=== PATIENT | female | born 1960 | race Caucasian/White ===

== ENCOUNTER 2018-06-19 18:24 | Emergency (ER) | payer BC ==
--- NOTE | 2018-06-19 18:55 | EDM.PDOC ---
ED HPI GENERAL MEDICAL PROBLEM - General Chief Complaint: Upper Extremity Injury/Pain Stated Complaint: slit wrists Time Seen by Provider: 06/19/18 18:28 Source of Information: Reports: Patient, Family History Limitations: Reports: No Limitations - History of Present Illness INITIAL COMMENTS - FREE TEXT/NARRATIVE: Berkley is a 57 year old female who presents to the ED via private vehicle with her with reports of a suicide attempt. She reports she took 27 [place] tablets around noon and slit both her wrists at that time as well using a scalpel. She reports she has been struggling with depression for some time now and has been having suicidal thoughts the past few months. Has never acted on them until today. She reports that she has history of breast and ovarian cancer and has struggled with depression since then. reports he got home from work around 6:00 and found her with blood and slits to both her wrists. He reports he got home and was looking for her in the house, but was unable to find her. Then reports he got a text saying "I guess I need help." He reports he then [place]. He reports she has been alert and oriented the entire time. reports patient was also drinking wine when he found her as well. Patient is alert and oriented at time of presentation. She is maintaining her airway and talking in complete sentences. She is tearful. Does not offer much conversation regarding events of today. GCS 15. Onset: Today, Sudden Onset Date: 06/19/18 Onset Time: 12:00 Location: Reports: Upper Extremity, Left, Upper Extremity, Right Associated Symptoms: Reports: Nausea/Vomiting, Shortness of Breath. Denies: Confusion, Chest Pain, Cough, cough w sputum, Diaphoresis, Fever/Chills, Headaches, Loss of Appetite, Malaise, Rash, Seizure, Syncope, Weakness Treatments SCIENTIFIC EDITOR: Reports: Other (see below) (27 [place] (hydrocodone-acetaminophen 5-325 mg)) Chest Pain Score (Numeric/FACES): 3 - Related Data Allergies Allergy/AdvReac Type Severity Reaction Status Date / Time No Known Allergies Allergy Verified 06/19/18 18:37 Home Meds: Home Meds Anastrozole [Arimidex] 1 tab PO DAILY 06/19/18 [History] Hydrocodone/Acetaminophen [Hydrocodon-Acetaminophen 5-325] 1 - 2 tab PO Q4HR PRN 06/19/18 [History] Review of Systems - Review of Systems Review Of Systems: ROS reveals no pertinent complaints other than HPI. ED EXAM, GENERAL - Physical Exam Exam: See Below Exam Limited By: No Limitations General Appearance: Alert, WD/WN, No Apparent Distress Eye Exam: Bilateral Eye: EOMI, Normal Fundi, Normal Inspection, PERRL Head: Atraumatic, Normocephalic Neck: Normal Inspection, Supple, Non-Tender, Full Range of Motion Respiratory/Chest: No Respiratory Distress, Lungs Clear, Normal Breath Sounds, No Accessory Muscle Use, Chest Non-Tender Cardiovascular: Normal Peripheral Pulses, Regular Rate, Rhythm, No Edema, No Gallop, No JVD, No Murmur, No Rub Peripheral Pulses: 2+: Radial (L), Radial (R) GI/Abdominal: Normal Bowel Sounds, Soft, Non-Tender, No Organomegaly, No Distention, No Abnormal Bruit, No Mass Back Exam: Normal Inspection, Full Range of Motion, NT Extremities: Normal Range of Motion, Normal Capillary Refill, Other (5 cm laceration to left wrist, 7 cm laceration to left wrist, no active bleeding, cap refill < 2 cm, radial pulse 2+ bilaterally, ROM intact to bilateral wrists and all digits) Neurological: Alert, Oriented, CN II-XII Intact, Normal Cognition, No Motor/ Sensory Deficits Psychiatric: Depressed Mood, Flat Affect, Tearful Skin Exam: Wound/Incision (7 cm laceration to left medial wrist, 5 cm laceration to right medial wrist, no active bleeding, CMS intact) ED TRAUMA EXTREMITY PROCEDURES - Laceration/Wound Repair Right Medial Wrist Lac/Wound Length In cm: 5 Appearance: Subcutaneous, Linear, Clean Distal NVT: Neuro & Vascular Intact, No Tendon Injury Anesthetic Type: Local Local Anesthesia - Lidocaine (Xylocaine): 1% with EPI Local Anesthetic Volume: 4cc Skin Prep: Providone-Iodine (Betadine) Saline Irrigation (cc's): 30 Exploration/Debridement/Repair: Wound Explored, No Foreign Material Found Closed With: Sutures Suture Size: 4-0 # of Sutures: 6 Suture Type: Nylon, Interrupted, Simple Sterile Dressing Applied: Nurse Tetanus Status Addressed: Yes Complications: No Progress/Comments: CMS intact pre and post laceration repair. Patient had full ROM to wrist and all digits. Cap refill < 2 seconds. Left Medial Wrist Lac/Wound Length In cm: 7 Appearance: Subcutaneous, Muscle, Linear, Clean Distal NVT: Neuro & Vascular Intact, No Tendon Injury Anesthetic Type: Local Local Anesthesia - Lidocaine (Xylocaine): 1% with EPI Local Anesthetic Volume: 4cc Skin Prep: Providone-Iodine (Betadine) Exploration/Debridement/Repair: Wound Explored, No Foreign Material Found Closed With: Sutures Suture Size: 4-0 # of Sutures: 7 Suture Type: Nylon, Interrupted, Simple Sterile Dressing Applied: Nurse Tetanus Status Addressed: Yes Complications: No Progress/Comments: Patient tolerated well. CMS intact pre and post laceration repair. Cap refill < 2 seconds. ROM intact to wrist and all digits. Course - Vital Signs Last Recorded V/S: Last Vital Signs Temp 97.4 F 06/19/18 20:10 Pulse 70 06/19/18 20:10 Resp 18 06/19/18 20:10 BP 175/95 H 06/19/18 20:10 Pulse Ox 96 06/19/18 20:10 - Orders/Labs/Meds Orders: Active Orders 24 hr Category Date Time Status Vaccines to be Administered [RC] PER UNIT ROUTINE Care 06/19/18 19:55 Active ACETAMINOPHEN [REF] Routine Lab 06/19/18 18:39 Received DRUG SCREEN URINE BIORAD [URCHEM] Routine Lab 06/19/18 18:39 Received UA RFX AZAM AND CULT IF INDIC [URIN] Routine Lab 06/19/18 18:39 Received Labs: Laboratory Tests 06/19/18 06/19/18 Range/Units 18:39 18:39 WBC 16.0 H (5.0-10.0) 10^3/uL RBC 4.92 (4.00-5.50) 10^6/uL Hgb 15.3 (12.0-16.0) g/dL Hct 44.2 (37.0-47.0) % MCV 89.8 (82.0-94.0) fL MCH 31.1 (27.0-32.0) pg MCHC 34.6 (33.0-38.0) g/dL RDW Coeff of Nicole 12.2 (11.0-15.0) % Plt Count 246 (150-400) 10^3/uL Neut % (Auto) 85.0 (35-85) % Lymph % (Auto) 11.1 (10-55) % [place] % (Auto) 3.7 (0-16) % Eos % (Auto) 0.1 (0-5) % Baso % (Auto) 0.1 (0-3) % Neut # (Auto) 13.59 H (1.80-7.00) 10^3/uL Lymph # (Auto) 1.78 (1.00-4.80) 10^3/uL [place] # (Auto) 0.59 (0.00-0.80) 10^3/uL Eos # (Auto) 0.02 (0.00-0.45) 10^3/uL Baso # (Auto) 0.02 10^3/uL Sodium 138 (136-145) mEq/L Potassium 4.1 (3.5-5.0) mEq/L Chloride 98 (98-106) mEq/L Carbon Dioxide 28 (21-32) mmol/L BUN 10 (7-18) mg/dL Creatinine 0.7 (0.6-1.0) mg/dL Est Cr Clr Drug Dosing 69.28 mL/min Estimated GFR (MDRD) > 60 (>=60) mL/min Glucose 110 H (75-99) mg/dL Calcium 9.6 (8.4-10.1) mg/dL Total Bilirubin 0.4 (0.0-1.0) mg/dL AST 21 (15-37) U/L ALT 24 (12-78) U/L Alkaline Phosphatase 84 (46-116) U/L Total Protein 7.5 (6.4-8.2) g/dL Albumin 4.2 (3.4-5.0) g/dL Meds: Medications Discontinued Medications Generic Name Dose Route Start Last Admin Trade Name Freq PRN Reason Stop Dose Admin Acetylcysteine 8,000 mg 06/19/18 19:01 06/19/18 19:02 Acetadote 20% IV 06/19/18 19:02 8,000 mg ONETIME ONE Administration Acetylcysteine 3,000 mg 06/19/18 20:03 06/19/18 20:04 Acetadote 20% IV 06/19/18 20:04 3,000 mg ONETIME ONE Administration Diphtheria/Tetanus/Acell Pertussis 0.5 ml 06/19/18 19:55 06/19/18 19:59 Adacel IM 06/19/18 19:56 0.5 ml .ONCE ONE Administration Lidocaine/Epinephrine Confirm 06/19/18 19:04 06/19/18 19:55 Xylocaine 1% With Epinephrine 1:100,000 Administered 06/19/18 19:05 Not Given Dose 20 ml .ROUTE .STK-MED ONE Lidocaine/Epinephrine 20 ml 06/19/18 19:52 06/19/18 19:56 Xylocaine 1% With Epinephrine 1:100,000 INJECT 06/19/18 19:53 20 ml ONETIME ONE Administration Ondansetron HCl 4 mg 06/19/18 19:54 06/19/18 19:56 Zofran IVPUSH 4 mg Q6H PRN Administration Nausea Ondansetron HCl Confirm 06/19/18 19:43 06/19/18 19:56 Zofran Administered 06/19/18 19:44 Not Given Dose 4 mg .ROUTE .STK-MED ONE - Re-Assessments/Exams Free Text/Narrative Re-Assessment/Exam: 06/19/18 19:02 Initial dose of Acetylcysteine 8000 mg started. 06/19/18 19:06 Contacted [facility]. Discussed case with Dr. Shaikh , ED provider, who accepted the patient for transfer. 06/19/18 19:56 Patient nauseated and dry heaving. 4 mg Zofran administered. 06/19/18 20:03 Initial dose of Acetylcysteine completed. 06/19/18 20:04 Second dose of Acetylcysteine 3000 mg started 06/19/18 20:10 Completed laceration repair to bilateral wrists. 7 sutures placed to left wrist and 6 sutures placed to right wrist without complication. Patient tolerated well. CMS intact pre and post repair. 06/19/18 20:15 Discussed code status with patient and . Patient wishes to be code 2. reports he wishes her to be code 1. Advance directed reads code 1. I do feel that with recent suicide attempt and medication overdose she is not in mindset to make decision. Will keep patient code 1 per husbands wishes. signed code status. Discussed risks and benefits of transfer with patient and . Risks of transfer include worsening of condition, , and MVA enroute. Benefits of transfer include higher level of care, lab capabilities to assess acetaminophen level, and mental health consultation. Risks of nontransfer include worsening of condition and . Benefits of transfer include convenience and familiar environment. Patient and verbalized understanding and were agreeable to transfer. 06/19/18 20:40 Patient attempted to void to get urine sample for UA/tox screen. Missed hat so no urine sample collected. ALS transfer crew here for transfer. Patient discharged from facility with [facility] ALS transfer crew. Departure - Departure Time of Disposition: 20:38 Disposition: Home, Self-Care 01 Condition: Good Clinical Impression: Suicide attempt by acetaminophen overdose Qualifiers: Encounter type: initial encounter Qualified Code(s): T39.1X2A - Poisoning by 4- Aminophenol derivatives, intentional self-harm, initial encounter Suicide and self-inflicted injury by unspecified means Qualifiers: Encounter type: initial encounter Qualified Code(s): X83.8XXA - Intentional self-harm by other specified means, initial encounter - Discharge Information *PRESCRIPTION DRUG MONITORING PROGRAM REVIEWED*: Not Applicable *COPY OF PRESCRIPTION DRUG MONITORING REPORT IN PATIENT MATT: Not Applicable Referrals: PCP,None [Primary Care Provider] - Forms: ED Department Discharge - Problem List & Annotations (1) Suicide attempt by acetaminophen overdose SNOMED Code(s): 870338304 Code(s): T39.1X2A - POISONING BY 4-AMINOPHENOL DERIVATIVES, SELF-HARM, INIT Status: Acute Qualifiers: Encounter type: initial encounter Qualified Code(s): T39.1X2A - Poisoning by 4-Aminophenol derivatives, intentional self-harm, initial encounter (2) Suicide and self-inflicted injury by unspecified means SNOMED Code(s): 48268138, 068261262 Code(s): X83.8XXA - INTENTIONAL SELF-HARM BY OTHER SPECIFIED MEANS, INIT ENCNTR Status: Acute Qualifiers: Encounter type: initial encounter Qualified Code(s): X83.8XXA - Intentional self-harm by other specified means, initial encounter (3) Depression SNOMED Code(s): 66530990 Code(s): F32.9 - MAJOR DEPRESSIVE DISORDER, SINGLE EPISODE, UNSPECIFIED Status: Chronic Qualifiers: Depression Type: major depressive disorder Major depression recurrence: unspecified whether recurrent Active/Remission status: remission status unspecified Qualified Code(s): F32.9 - Major depressive disorder, single episode, unspecified - Problem List Review Problem List Initiated/Reviewed/Updated: Yes - My Orders Last 24 Hours: My Active Orders 06/19/18 18:39 ACETAMINOPHEN [REF] Routine DRUG SCREEN URINE BIORAD [URCHEM] Routine UA RFX AZAM AND CULT IF INDIC [URIN] Routine 06/19/18 19:55 Vaccines to be Administered [RC] PER UNIT ROUTINE - Assessment/Plan Last 24 Hours: My Active Orders 06/19/18 18:39 ACETAMINOPHEN [REF] Routine DRUG SCREEN URINE BIORAD [URCHEM] Routine UA RFX AZAM AND CULT IF INDIC [URIN] Routine 06/19/18 19:55 Vaccines to be Administered [RC] PER UNIT ROUTINE Plan: Patient will be transferred to [facility]. Accepting ED provider Dr. Shaikh. Patient will be transferred via [facility] ALS transfer crew. Second dose of acetylcysteine 3000 mg infusing over 4 hours while enroute. Patient discharged from facility in satisfactory condition. Recommend suture removal in 10 days.
[2018-06-19 18:57] LABS: CHLORIDE,CL 98 mEq/L (98-106); SODIUM,NA 138 mEq/L (136-145)
[2018-06-19] MEDS ORDERED: Acetylcysteine 20% 200 MG/ML 30 ML SDV IV ONE ×2 (19:01→20:03)
[2018-06-19] MEDS ORDERED: Lidocaine 1% with EPINEPHrine 1:100,000 20 ML MDV ONE (19:04)
[2018-06-19] MEDS ORDERED: Ondansetron 4 MG/2 ML SDV ONE (19:43)
[2018-06-19] MEDS ORDERED: Lidocaine 1% with EPINEPHrine 1:100,000 20 ML MDV INJECT ONE (19:52)
[2018-06-19] MEDS ORDERED: Ondansetron 4 MG/2 ML SDV IVPUSH PRN (19:54)
[2018-06-19] MEDS ORDERED: Diphtheria,Pertussis(Acell),Tetanus Vaccine 0.5 ML Syringe IM ONE (19:55)
== END 2018-06-19 20:40 ==
LOC: CC.ED 18:24
DX: T39.1X2A Poisoning by 4-Aminophenol derivatives, intentional self-harm, initial encounter (principal); S61.512A Laceration without foreign body of left wrist, initial encounter; S61.511A Laceration without foreign body of right wrist, initial encounter; Z79.899 Other long term (current) drug therapy; X78.8XXA Intentional self-harm by other sharp object, initial encounter; Z23 Encounter for immunization
CPT/HCPCS: 12004; 36415; 80053; 85025; 90471; 90715; 96365; 96366; 96375; 99285; G0480; J0132; J2405

== ENCOUNTER → 2022-07-13 | Day surgery (SDC) | payer BC ==
[~2022-07-13] MED LIST: Ketamine 200 MG/20 ML MDV ONE; Propofol 200 MG/20 ML SDV ONE; fentaNYL 50 MCG/ML SDV ONE
[2022-07-13] MEDS: Lactated Ringers 1,000 ML IV SCH (08:59)
== END ==
LOC: CC.SDS 08:44
PROVIDERS: ATTEND Family Medicine
DX: Z12.11 Encounter for screening for malignant neoplasm of colon (principal); K63.5 Polyp of colon; K29.80 Duodenitis without bleeding; K29.50 Unspecified chronic gastritis without bleeding; B96.81 Helicobacter pylori [H. pylori] as the cause of diseases classified elsewhere; K57.30 Diverticulosis of large intestine without perforation or abscess without bleeding; Z80.0 Family history of malignant neoplasm of digestive organs; F41.9 Anxiety disorder, unspecified; F33.2 Major depressive disorder, recurrent severe without psychotic features; E78.5 Hyperlipidemia, unspecified; M85.80 Other specified disorders of bone density and structure, unspecified site; Z79.899 Other long term (current) drug therapy; Z90.710 Acquired absence of both cervix and uterus; Z90.721 Acquired absence of ovaries, unilateral; Z98.890 Other specified postprocedural states
CPT/HCPCS: 00813; 87081; J2704; J3010; J3490; J7120